=== PATIENT | male | born 1980 | race Hispanic/Latino ===

== ENCOUNTER 2017-03-27 07:37 | Emergency (ER) | payer SELFPAY ==
[2017-03-27 07:43] VITALS: BP 147/101
[2017-03-27] MEDS ORDERED: NORCO 5/325 PO ONE (08:39)
[2017-03-27] MEDS ORDERED: MOTRIN PO ONE (08:39)
--- NOTE | 2017-03-27 09:18 | Emergency Department Report ---
ED ENT HPI - General Chief complaint: Earache Stated complaint: RIGHT EAR PAIN Time Seen by Provider: 03/27/17 08:25 Source: patient Mode of arrival: Ambulatory Limitations: No Limitations - History of Present Illness Initial comments: PT c/o waking up with 10/10 R ear pain. PT states he had a recent URI and the last time he had an URI, he developed an ear infection. otherwise, he denies hx of ear problems. PT states he does use qtips to clean his ears. PT States that this morning he tried putting mason in his ear but it did not help. MD complaint: ear pain (R) -: During the night Location: R ear Severity: severe Severity scale (0 -10): 10 Quality: constant Consistency: constant Improves with: other (did not improve with mason ) Worsens with: none Context- Ear: recent illness Associated Symptoms: other (ear popping ). denies: fever, cough, sore throat, discharge from ear - Related Data Previous Rx's Medication Instructions Recorded Last Taken Type Amoxicillin 500 mg PO TID #30 capsule 03/27/17 Unknown Rx Ibuprofen [Motrin] 600 mg PO Q8H PRN #15 tablet 03/27/17 Unknown Rx Neomy/Polymyx B/Hc Otic Susp 4 drops AD TID 7 Days 03/27/17 Unknown Rx [Cortisporin (Otic) Susp] traMADol [Ultram] 50 mg PO Q6HR PRN #12 tablet 03/27/17 Unknown Rx Allergies Allergy/AdvReac Type Severity Reaction Status Date / Time codeine Allergy Unknown Verified 03/27/17 07:39 ED Dental HPI - General Chief complaint: Earache Stated complaint: RIGHT EAR PAIN Time Seen by Provider: 03/27/17 08:25 Source: patient Mode of arrival: Ambulatory Limitations: No Limitations - Related Data Previous Rx's Medication Instructions Recorded Last Taken Type Amoxicillin 500 mg PO TID #30 capsule 03/27/17 Unknown Rx Ibuprofen [Motrin] 600 mg PO Q8H PRN #15 tablet 03/27/17 Unknown Rx Neomy/Polymyx B/Hc Otic Susp 4 drops AD TID 7 Days 03/27/17 Unknown Rx [Cortisporin (Otic) Susp] traMADol [Ultram] 50 mg PO Q6HR PRN #12 tablet 03/27/17 Unknown Rx Allergies Allergy/AdvReac Type Severity Reaction Status Date / Time codeine Allergy Unknown Verified 03/27/17 07:39 ED Review of Systems ROS: Stated complaint: RIGHT EAR PAIN Other details as noted in HPI Comment: All other systems reviewed and negative Constitutional: denies: fever ENT: ear pain, other (ear popping ). denies: throat pain, hearing loss, congestion Respiratory: denies: cough Musculoskeletal: denies: back pain Neurological: headache ED Past Medical Hx - Past Medical History Previous Medical History?: Yes Hx Hypertension: Yes - Surgical History Past Surgical History?: Yes Additional Surgical History: T&A - Social History Smoking Status: Never Smoker Substance Use Type: Alcohol - Medications Home Medications: Home Medications Medication Instructions Recorded Confirmed Last Taken Type Amoxicillin 500 mg PO TID #30 capsule 03/27/17 Unknown Rx Ibuprofen [Motrin] 600 mg PO Q8H PRN #15 tablet 03/27/17 Unknown Rx Neomy/Polymyx B/Hc Otic Susp 4 drops AD TID 7 Days 03/27/17 Unknown Rx [Cortisporin (Otic) Susp] traMADol [Ultram] 50 mg PO Q6HR PRN #12 tablet 03/27/17 Unknown Rx ED Physical Exam - General Limitations: No Limitations General appearance: alert, in no apparent distress - Head Head exam: Present: atraumatic, normocephalic, normal inspection - Eye Eye exam: Present: normal appearance, PERRL, EOMI. Absent: conjunctival injection, nystagmus - ENT ENT exam: Present: normal orophraynx, mucous membranes moist, normal external ear exam - Expanded ENT Exam Expanded Ear exam: Present: other (R tragus ttp ) TM/Canal exam: Bulging: Right TM, Effusion: Right TM, Loss of Landmarks: Right TM, Canal Discharge: Right TM, Canal Tenderness: Right TM Mouth exam: Absent: drooling, trismus Teeth exam: Absent: dental caries Throat exam: Positive: normal inspection - Neck Neck exam: Present: normal inspection, full ROM. Absent: tenderness, lymphadenopathy - Respiratory Respiratory exam: Present: normal lung sounds bilaterally. Absent: respiratory distress, wheezes, rales, rhonchi - Cardiovascular Cardiovascular Exam: Present: regular rate, normal rhythm, normal heart sounds - Extremities Exam Extremities exam: Present: normal inspection, full ROM - Back Exam Back exam: Present: normal inspection, full ROM. Absent: tenderness, CVA tenderness (R), CVA tenderness (L) - Neurological Exam Neurological exam: Present: alert, oriented X3, normal gait - Psychiatric Psychiatric exam: Present: normal affect, normal mood - Skin Skin exam: Present: warm, dry, intact, normal color ED Course Vital Signs 03/27/17 03/27/17 07:39 08:50 Temperature 97.8 F Pulse Rate 81 Respiratory 16 16 Rate Blood Pressure 147/101 O2 Sat by Pulse 99 Oximetry - Reevaluation(s) Reevaluation #1: 03/27/17 09:34 PT aware of dx and plan of care. PT instructed to stop using q tips and to stop putting mason in his ear. PT states he is feeling better. - Pulse Oximetry Interpretation Digit-Finger Initial Pulse Oximetry Readin Actions Taken: none ED Medical Decision Making - Differential Diagnosis om, oe, cerumen impaction Critical Care Time: No Critical care attestation.: If time is entered above; I have spent that time in minutes in the direct care of this critically ill patient, excluding procedure time. ED Disposition Clinical Impression: Right otitis media with effusion Right otitis externa Qualifiers: Otitis externa type: unspecified type Chronicity: acute Qualified Code(s): H60.501 - Unspecified acute noninfective otitis externa, right ear Disposition: TO HOME OR SELFCARE Is pt being admited?: No Does the pt Need Aspirin: No Condition: Stable Instructions: Otitis Externa (ED), Otitis Media (ED) Additional Instructions: Have your BP rechecked at your follow up appointment Follow up with PCP in 3-5 days Do not use qtips or put anything in your ear do not drive or drink alcohol after taking Ultram for your pain. Try to treat your pain with Motrin first Return to ED if worsening or concerns Prescriptions: Amoxicillin 500 mg PO TID #30 capsule Ibuprofen [Motrin] 600 mg PO Q8H PRN #15 tablet PRN Reason: Pain Neomy/Polymyx B/Hc Otic Susp [Cortisporin (Otic) Susp] 4 drops AD TID 7 Days traMADol [Ultram] 50 mg PO Q6HR PRN #12 tablet PRN Reason: Pain Referrals: [facility] [Outside] - 3-5 Days JOSE DICKENS MD [Staff Physician] - 3-5 Days [facility], [Primary Care Provider] - 3-5 Days Forms: Accompanied Note, Work/School Release Form(ED) Time of Disposition: 09:38
[2017-03-27] MEDS ORDERED: CORTISPORIN AD SCH (09:30)
== END 2017-03-27 09:54 | disposition home or self-care (01) ==
LOC: ED 07:37
DX: H60.501 Unspecified acute noninfective otitis externa, right ear (principal); H66.91 Otitis media, unspecified, right ear; I10 Essential (primary) hypertension
CPT/HCPCS: 99282